=== PATIENT | female | born 1995 | race Caucasian/White ===

== ENCOUNTER 2017-02-21 12:18 | Emergency (ER) | payer BC, OTHER ==
[2017-02-21 12:27] VITALS: BP 115/62; PULSE 68; TEMP 98.3
--- NOTE | 2017-02-21 12:32 | PDOC ---
History of Present Illness - General Chief Complaint: Syncope/Near Syncope Stated Complaint: passed out Time Seen by Provider: 02/21/17 12:22 History Source: Patient Exam Limitations: No Limitations - History of Present Illness Initial Comments: 02/21/17 12:27 21 y/o female was at her Orthopedic appointment and was reviewing her MRI of the hip. She states that she passed out and awoke on the floor. Had very little to eat today. Hit the back of her head on the door knob as per Dr. Cope, Orthopedist that was seeing pt and witnessed event. Patient denies chest pain, SOB, fever or chills. Starting to feel better. This has happened to pt 5 years ago. No SOB or chest pain. Vomited once. Head and neck feel fine. Presenting Symptoms: Syncope Timing/Duration: reports: gone now Past History - Past Medical History Allergies/Adverse Reactions: Allergies Allergy/AdvReac Type Severity Reaction Status Date / Time No Known Allergies Allergy Verified 02/21/17 12:27 Home Medications: Ambulatory Orders Sertraline HCl [Zoloft] 100 mg PO HS 02/21/17 - Suicide/Smoking/Psychosocial Hx Smoking History: Never smoked Hx Alcohol Use: No Drug/Substance Use Hx: No Review of Systems - Review of Systems Able to Perform ROS?: Yes Is the patient limited Vietnamese proficient: No Constitutional: No: Chills, Fever HEENTM: No: Blurred Vision Respiratory: No: Cough, Shortness of Breath Cardiac (ROS): No: Chest Pain ABD/GI: No: Diarrhea, Nausea, Vomiting : No: Dysuria Integumentary: No: Bruising Neurological: No: Headache All Other Systems: Reviewed and Negative *Physical Exam - Vital Signs Last Vital Signs Temp Pulse Resp BP Pulse Ox 98.3 F 68 18 115/62 98 02/21/17 12:21 02/21/17 12:21 02/21/17 12:21 02/21/17 12:37 02/21/17 12:29 - Physical Exam General Appearance: Yes: Nourished, Appropriately Dressed. No: Apparent Distress HEENT: positive: EOMI, KRIS, Normal ENT Inspection, Other (contusion to right side of head noted, non tender) Neck: positive: Trachea midline, Normal Thyroid, Supple, Other (no cervical spinous process tenderness noted, full ROM). negative: Tender, Rigid Respiratory/Chest: positive: Lungs Clear, Normal Breath Sounds. negative: Chest Tender, Respiratory Distress Cardiovascular: positive: Regular Rhythm, Regular Rate, S1, S2. negative: Edema , JVD, Murmur Vascular Pulses: Femoral (R): 4+, Femoral (L): 4+, Carotid (R): 4+, Carotid (L) : 4+, Dorsalis-Pedis (R): 4+, Doralis-Pedis (L): 4+ Gastrointestinal/Abdominal: positive: Normal Bowel Sounds, Flat, Soft. negative : Tender, Organomegaly, Pulsatile Mass Lymphatic: negative: Adenopathy, Tenderness, Other Musculoskeletal: positive: Normal Inspection. negative: CVA Tenderness Extremity: positive: Normal Capillary Refill, Normal Inspection, Normal Range of Motion. 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 intact, Fully Oriented, Alert, Normal Mood/ Affect, Normal Response, Motor Strength 5/5 (strength 5+/5 b/l in UE and LE, no focal deficits noted) Heart Score/ECG Review - ECG Intrepretation Rhythm: Regular Rhythm Comment:: 02/21/17 12:42 rate 57 at 12:40 - [place]: Normal - ECG Impressions Normal ECG: Yes ED Treatment Course - LABORATORY CBC & Chemistry Diagram: 02/21/17 12:37 02/21/17 12:37 - ADDITIONAL ORDERS Additional order review: Laboratory Results 02/21/17 02/21/17 12:37 12:37 Sodium 137 Potassium 3.5 Chloride 102 Carbon Dioxide 27 Anion Gap 8 BUN 7 Creatinine 0.9 Creat Clearance w eGFR > 60 Random Glucose 119 H Calcium 9.6 Total Bilirubin 0.8 AST 22 ALT 11 Alkaline Phosphatase 57 Total Protein 6.8 Albumin 4.6 Serum , Qual Negative 02/21/17 12:37 RBC 4.55 MCV 92.9 MCHC 34.3 RDW 12.4 MPV 8.8 Neutrophils % 64.0 Lymphocytes % 27.8 Monocytes % 6.4 Eosinophils % 0.8 Basophils % 1.0 - Medications Given in the ED: ED Medications Discontinued Medications Generic Name Dose Route Start Last Admin Trade Name Freq PRN Reason Stop Dose Admin Sodium Chloride 1,000 mls @ 1,000 mls/hr 02/21/17 12:37 02/21/17 12:37 Normal Saline - IV 02/21/17 13:36 1,000 mls/hr ASDIR STA Administration Progress Note - Progress Note Progress Note: Pt with syncopal episode, will check EKG and labs. Labs normal, EKG normal. Pt is feeling much better, discussed head injury handout If symptoms worsen will return for CT head, pt in agreement with plan Pt does not wish to have CT head, risks and benefits discussed with pt and mother *DC/Admit/Observation/Transfer Diagnosis at time of Disposition: Vasovagal episode Injury of head Qualifiers: Encounter type: initial encounter Qualified Code(s): S09.90XA - Unspecified injury of head, initial encounter; S09.90XA - Unspecified injury of head, initial encounter - Discharge Dispostion Disposition: HOME Condition at time of disposition: Improved Admit: No - Patient Instructions Printed Discharge Instructions: DI for Syncope in Adults (Fainting), DI for Closed Head Injury Additional Instructions: Ice, Tylenol, rest Head injury hand out If worsens in next 24 hr return to ER Follow up with PMD
[2017-02-21] MEDS ORDERED: SODIUM CHLORIDE 1,000 ML IV STA (12:37)
[2017-02-21 12:50] LABS: EOSINOPHIL 0.8 % (0-4.5); MCH 31.8 pg (25.7-33.7); MCHC 34.3 g/dl (32.0-36.0); MEAN CELL VOLUME 92.9 fl (80-96); MEAN PLT VOLUME 8.8 fl (7.5-11.1); PLATELET COUNT 245 K/MM3 (134-434); RDW 12.4 % (11.6-15.6); WHITE BLOOD COUNT 7.2 K/mm3 (4.0-10.8)
[2017-02-21 12:59] LABS: ALBUMIN 4.6 g/dl (3.5-5.0); ALK PHOS 57 U/L (32-92); ANION GAP 8 (8-16); BILIRUBIN,TOTAL 0.8 mg/dl (0.2-1.0); CALCIUM 9.6 mg/dl (8.4-10.2); CO2 27 mmol/L (22-28); CREATININE 0.9 mg/dl (0.6-1.3); GLUCOSE,RANDOM 119 mg/dl (74-106); SGOT/AST 22 U/L (10-42); SGPT/ALT 11 U/L (10-40); TOT PROT 6.8 g/dl (6.4-8.3)
--- NOTE | 2017-02-22 20:01 | EKG ---
Test Reason : Blood Pressure : / mmHG Vent. Rate : 057 BPM Atrial Rate : 057 BPM P-R Int : 142 ms QRS Dur : 092 ms QT Int : 462 ms P-R-T Axes : 055 059 048 degrees QTc Int : 449 ms SINUS BRADYCARDIA OTHERWISE NORMAL ECG NO PREVIOUS ECGS AVAILABLE Confirmed by YOLIS FOUNTAIN MD ([id number] on 02/22/2017 8:01:35 PM Referred By: NAVJOT Confirmed By:YOLIS FOUNTAIN MD
== END 2017-02-21 13:43 | disposition home or self-care (01) ==
LOC: FER 12:18
PROC: 3E0337Z Introduction of Electrolytic and Water Balance Substance into Peripheral Vein, Percutaneous Approach (ICD-10-PCS; principal; 2017-02-21)
DX: R55 Syncope and collapse (principal)
CPT/HCPCS: 36415; 80053; 84703; 85025; 93005; 99285-25